=== PATIENT | male | born 1940 | race Hispanic/Latino ===

== ENCOUNTER → 2018-08-16 | Outpatient (CLI) | payer OTHER ==
[~2018-08-16] MED LIST: ASPI-1197 PO; ATOR40TA71 PO; CARV25TA PO; FA/M1TAB32 PO; FLUT1DIS3 IH; FURO40TA5 PO; IPRA42SP EN; LISI2.5T2 PO; METF-444 PO; OMEG-108 PO; OXYB15TA PO; SPIR25TA6 PO; TAMS0.4C32 PO; TYL3 PO; UMEC62.5 IH
== END | disposition home or self-care (01) ==
LOC: SHCH 09:47
PROVIDERS: ATTEND Internal Medicine Cardiovascular Disease
DX: I08.0 Rheumatic disorders of both mitral and aortic valves (principal); Z95.810 Presence of automatic (implantable) cardiac defibrillator
CPT/HCPCS: 93306

== ENCOUNTER → 2020-05-10 | Outpatient (CLI) | payer MEDICARE ==
[~2020-05-10] VITALS: Ht 165.1 cm; Wt 68.5 kg
[~2020-05-10] MED LIST changes: -OXYB15TA PO; +OXYB15TA19 PO; +REGADENOSON 0.4 MG/5 ML PF SYG IVP SCH
== END | disposition home or self-care (01) ==
LOC: SHCH 08:33
PROVIDERS: ATTEND Internal Medicine Cardiovascular Disease
DX: I25.10 Atherosclerotic heart disease of native coronary artery without angina pectoris (principal)
CPT/HCPCS: 78452; 93017; 96374; A9500 ×2; J2785

== ENCOUNTER 2020-06-04 06:31 | Day surgery (SDC) | payer MEDICARE ==
[~2020-06-04 06:31] MED LIST changes: -REGADENOSON 0.4 MG/5 ML PF SYG IVP SCH; +SODIUM CHLORIDE 0.9% 1000ML 1,000 ML IV ONE
== END 2020-06-04 07:50 ==
LOC: ENDO 06:31 → DAH 06:31 → ENDO 07:50
PROVIDERS: ATTEND Internal Medicine Gastroenterology
DX: R19.5 Other fecal abnormalities (principal); Z86.010 Personal history of colon polyps; Z20.828 Contact with and (suspected) exposure to other viral communicable diseases; Z53.8 Procedure and treatment not carried out for other reasons
CPT/HCPCS: 82948; C9803; J7030; U0003

== ENCOUNTER 2020-12-10 09:38 | Inpatient (IN) | payer MEDICARE ==
[2020-12-10] VITALS (39 sets, daily range): BP systolic 89–111; BP diastolic 40–61
[~2020-12-10] VITALS: Ht 162.6 cm; Wt 64.9 kg
[~2020-12-10 09:38] MED LIST changes: +ACET-2247 PO; +APIX2.5T PO; -ASPI-1197 PO; +ATOR20TA PO; -ATOR40TA71 PO; -CARV25TA PO; +CARV6.25 PO; +CYCL5TAB PO; +DICY20TA11 PO; +DOCU100T PO; -FA/M1TAB32 PO; -FLUT1DIS3 IH; +FURO-151 PO; -FURO40TA5 PO; +GLUC1SYR SQ; +GUAI100S13 PO; +INSU100V3 IJ; -IPRA42SP EN; +LACT10SO9 PO; +LACT1CAP70 PO; -LISI2.5T2 PO; +MEGE400O4 PO; -METF-444 PO; +METO5TAB87 PO; +MULT-1192 PO; -OMEG-108 PO; +ONDA4TAB4 PO; -OXYB15TA19 PO; +QUESL4 PO; -SODIUM CHLORIDE 0.9% 1000ML 1,000 ML IV ONE; -SPIR25TA6 PO; +TAMS-1 PO; -TAMS0.4C32 PO; +THIA100V3 PO; +TROL35.4 TP; -TYL3 PO; -UMEC62.5 IH
[2020-12-10 10:04] LABS: BASOPHILS % (AUTO) 0.2 % (0.0-5.0); EOSINOPHILS % (AUTO) 0.2 % (0.0-8.0); HEMATOCRIT 34.5 % (42-54); LYMPHOCYTES % (AUTO) 7.4 % (21.0-51.0); MEAN CORPUSCULAR HEMOGLOBIN 27.1 pg (27.0-33.0); MEAN CORPUSCULAR HGB CONC 32.5 g/dL (32.0-36.0); MEAN CORPUSCULAR VOLUME 83.5 fL (79-99); MONOCYTES % (AUTO) 6.9 % (3.0-13.0); NEUTROPHILS % (AUTO) 84.7 % (40.0-77.0); PLATELET COUNT (AUTO) 183 K/uL (130-400); RED BLOOD CELL COUNT(AUTO) 4.13 MIL/uL (4.50-6.20); RED CELL DISTRIBUTION WIDTH 15.2 % (11.0-15.5); WHITE BLOOD COUNT (AUTO) 12.5 K/uL (4.8-10.8)
[2020-12-10 10:18] LABS: CREATININE 1.3 mg/dL (0.5-1.5); POTASSIUM 3.5 mmol/L (3.5-5.1)
[2020-12-10 10:23] LABS: ALBUMIN 3.8 g/dL (3.5-5.0); BILIRUBIN,TOTAL 0.5 mg/dL (0.2-1.0); MAGNESIUM 1.9 mg/dL (1.80-2.40); TOTAL PROTEIN, SERUM 7.6 g/dL (6.0-8.3)
[2020-12-10] MEDS ORDERED: PHARMACY COMMUNICATION MISC SCH (10:30)
[2020-12-10] MEDS ORDERED: AMIODARONE 900MG VIAL 360 MG in DEXTROSE 5%-WATER 200 ML IV SCH (10:30)
[2020-12-10] MEDS ORDERED: AMIODARONE 150MG VIAL ONE ×2 (10:32→10:59)
[2020-12-10] MEDS ORDERED: 0.9%NACL 50ML 50 ML IV ONE ×2 (10:33→10:59)
[2020-12-10] MEDS ORDERED: POTASSIUM CHLORIDE 20MEQ/100ML 100 ML IV ONE (10:53)
[2020-12-10] MEDS ORDERED: AMIODARONE 150MG VIAL 150 MG in DEXTROSE 5%-WATER 100 ML IV SCH (11:30)
[2020-12-10 11:51] LABS: B-TYPE NATRIURETIC PEPTIDE 220 pg/mL (0-100)
[2020-12-10] MEDS ORDERED: ACETAMINOPHEN 325 MG TAB PO PRN ×2 (12:30→13:00)
[2020-12-10] MEDS ORDERED: ONDANSETRON 4MG INJ IVP PRN ×2 (12:30→13:00)
[2020-12-10] MEDS ORDERED: KCL 20 MEQ ERTAB PO PRN (13:00)
[2020-12-10] MEDS ORDERED: GLUCAGON 1MG KIT 1 MG ML IM PRN (13:00)
[2020-12-10] MEDS ORDERED: [UNRECOGNIZED DRUG - OTHER] IV PRN (13:00)
[2020-12-10] MEDS ORDERED: LIDOCAINE HCL-MPF 1% 2ML VIAL IJ PRN (13:00)
[2020-12-10] MEDS ORDERED: SODIUM CHLORIDE 0.9% IV PRN (13:00)
[2020-12-10] MEDS ORDERED: DEXTROSE 50%-WATER 50 ML DISP.SYRIN IV PRN (13:00)
[2020-12-10] MEDS ORDERED: MAGNESIUM 2GM PREMIX IV PRN (13:00)
[2020-12-10] MEDS ORDERED: POTASSIUM CHLORIDE 20MEQ/100ML 100 ML IV PRN (13:00)
[2020-12-10] MEDS ORDERED: EPINEPHRINE 1MG SYG 10ML IVP ONE (14:39)
[2020-12-10] MEDS ORDERED: AMIODARONE 150MG VIAL IV ONE (14:39)
[2020-12-10] MEDS ORDERED: SODIUM BICARB 8.4% 50ML SYRINGE IVP ONE (14:39)
[2020-12-10] MEDS ORDERED: CACL 1GM SYG IVP ONE (14:39)
[2020-12-10] MEDS ORDERED: LIDOCAINE PF 100MG/5ML (2%) SYRINGE 5ML IVP ONE (14:39)
[2020-12-10] MEDS ORDERED: LIDOCAINE 2G/250ML 250 ML IV ONE (14:39)
[2020-12-10] MEDS ORDERED: DAPA5TAB PO (14:40)
[2020-12-10] MEDS ORDERED: CARV6.25 PO (14:40)
[2020-12-10] MEDS ORDERED: IPRA3S NASAL (14:40)
[2020-12-10] MEDS ORDERED: TAMS-1 PO (14:40)
[2020-12-10] MEDS ORDERED: METF-445 PO (14:40)
[2020-12-10] MEDS ORDERED: MONT10TA32 PO (14:40)
[2020-12-10] MEDS ORDERED: ATOR-2 PO (14:40)
[2020-12-10] MEDS ORDERED: APIX5TAB PO (14:40)
[2020-12-10] MEDS ORDERED: FURO40TA5 PO (14:40)
[2020-12-10] MEDS ORDERED: POTA20TA82 PO (14:40)
[2020-12-10] MEDS: INSULIN R PO SS1 SQ SCH ×2 (16:28→21:13)
[2020-12-10] MEDS: AMIODARONE 900MG VIAL 450 MG in DEXTROSE 5%-WATER 250 ML IV SCH (17:05)
[2020-12-10] MEDS: CEFEPIME HCL 1 GM VIAL IVP SCH (17:52)
[2020-12-10] MEDS: DOXYCYCLINE HYCLATE 100 MG TABLET PO SCH (17:52)
[2020-12-10] MEDS: ATORVASTATIN 40 MG TABLET PO SCH (21:11)
[2020-12-10] MEDS: APIXABAN 5 MG TABLET PO SCH (21:12)
[2020-12-11] VITALS (40 sets, daily range): BP systolic 92–114; BP diastolic 47–67
[2020-12-11 03:54] LABS: BASOPHILS % (AUTO) 0.3 % (0.0-5.0); EOSINOPHILS % (AUTO) 0.1 % (0.0-8.0); HEMATOCRIT 31.3 % (42-54); LYMPHOCYTES % (AUTO) 10.4 % (21.0-51.0); MEAN CORPUSCULAR HGB CONC 32.3 g/dL (32.0-36.0); MEAN CORPUSCULAR VOLUME 83.7 fL (79-99); MONOCYTES % (AUTO) 7.5 % (3.0-13.0); NEUTROPHILS % (AUTO) 81.2 % (40.0-77.0); PLATELET COUNT (AUTO) 159 K/uL (130-400); RED BLOOD CELL COUNT(AUTO) 3.74 MIL/uL (4.50-6.20); RED CELL DISTRIBUTION WIDTH 15.5 % (11.0-15.5); WHITE BLOOD COUNT (AUTO) 14.6 K/uL (4.8-10.8)
[2020-12-11 04:17] LABS: ALBUMIN 3.2 g/dL (3.5-5.0); BILIRUBIN,TOTAL 0.7 mg/dL (0.2-1.0); CREATININE 1.1 mg/dL (0.5-1.5); MAGNESIUM 2.5 mg/dL (1.80-2.40); POTASSIUM 4.2 mmol/L (3.5-5.1); TOTAL PROTEIN, SERUM 6.8 g/dL (6.0-8.3)
[2020-12-11 04:20] LABS: HEMOGLOBIN A1C 5.7 % (4.0-6.0)
[2020-12-11] MEDS: DOXYCYCLINE HYCLATE 100 MG TABLET PO SCH ×2 (04:56→18:11)
[2020-12-11] MEDS: CEFEPIME HCL 1 GM VIAL IVP SCH ×2 (04:56→18:11)
[2020-12-11] MEDS: INSULIN R PO SS1 SQ SCH ×4 (07:30→21:00)
[2020-12-11] MEDS ORDERED: LACTULOSE 20 GM/30 ML UDCUP PO SCH (09:00)
[2020-12-11] MEDS: AMIODARONE 900MG VIAL 450 MG in DEXTROSE 5%-WATER 250 ML IV SCH (09:45)
[2020-12-11] MEDS: CARVEDILOL 6.25 MG TABLET PO SCH ×2 (10:15→21:18)
[2020-12-11] MEDS: APIXABAN 5 MG TABLET PO SCH ×2 (10:16→21:18)
[2020-12-11] MEDS: FUROSEMIDE 40 MG TABLET PO SCH (10:16)
[2020-12-11] MEDS: MONTELUKAST SODIUM 10 MG TAB PO SCH (10:16)
[2020-12-11] MEDS: TAMSULOSIN HCL 0.4 MG CAP.ER.24H PO SCH (10:17)
[2020-12-11] MEDS: METFORMIN HCL 850 MG TABLET PO SCH ×2 (10:47→18:09)
[2020-12-11] MEDS: IPRATROPIUM 0.5 MG/2.5 ML INH IH SCH ×2 (12:00→18:00)
[2020-12-11] MEDS: AMIODARONE 200 MG TABLET PO SCH (21:18)
[2020-12-11] MEDS: ATORVASTATIN 40 MG TABLET PO SCH (21:18)
[2020-12-12 04:00] VITALS: BP 98/56
[2020-12-12] MEDS: DOXYCYCLINE HYCLATE 100 MG TABLET PO SCH ×2 (05:35→17:04)
[2020-12-12] MEDS: CEFEPIME HCL 1 GM VIAL IVP SCH ×2 (05:35→17:04)
[2020-12-12] MEDS: INSULIN R PO SS1 SQ SCH ×4 (07:30→20:42)
[2020-12-12 08:00] VITALS: BP 96/54
[2020-12-12 09:11] LABS: HEMATOCRIT 31.2 % (42-54); MEAN CORPUSCULAR HEMOGLOBIN 27.1 pg (27.0-33.0); MEAN CORPUSCULAR HGB CONC 32.4 g/dL (32.0-36.0); MEAN CORPUSCULAR VOLUME 83.6 fL (79-99); RED BLOOD CELL COUNT(AUTO) 3.73 MIL/uL (4.50-6.20); RED CELL DISTRIBUTION WIDTH 15.3 % (11.0-15.5); WHITE BLOOD COUNT (AUTO) 11.2 K/uL (4.8-10.8)
[2020-12-12] MEDS: TAMSULOSIN HCL 0.4 MG CAP.ER.24H PO SCH (09:15)
[2020-12-12] MEDS: MONTELUKAST SODIUM 10 MG TAB PO SCH (09:15)
[2020-12-12] MEDS: AMIODARONE 200 MG TABLET PO SCH ×2 (09:15→21:58)
[2020-12-12] MEDS: APIXABAN 5 MG TABLET PO SCH ×2 (09:15→21:57)
[2020-12-12] MEDS: FUROSEMIDE 40 MG TABLET PO SCH (09:15)
[2020-12-12] MEDS: METFORMIN HCL 850 MG TABLET PO SCH ×2 (09:16→17:04)
[2020-12-12] MEDS: CARVEDILOL 6.25 MG TABLET PO SCH ×2 (09:17→21:57)
[2020-12-12 09:26] LABS: CREATININE 1.3 mg/dL (0.5-1.5); POTASSIUM 3.8 mmol/L (3.5-5.1)
[2020-12-12] MEDS ORDERED: PHARMACY COMMUNICATION MISC SCH (09:30)
[2020-12-12 11:50] VITALS: BP 91/53
[2020-12-12] MEDS: IPRATROPIUM 0.5 MG/2.5 ML INH IH SCH ×4 (12:30→23:07)
[2020-12-12 16:06] VITALS: BP 96/53
[2020-12-12 19:00] VITALS: BP 97/55
[2020-12-12] MEDS: ATORVASTATIN 40 MG TABLET PO SCH (21:57)
[2020-12-12] MEDS: SACUBITRIL/VALSARTAN 1 EACH TABLET PO SCH (21:57)
[2020-12-12] MEDS: BALSAM PERU/CASTOR OIL 60 GM TUBE TP SCH (21:58)
[2020-12-13] VITALS (34 sets, daily range): BP systolic 68–120; BP diastolic 42–65
[2020-12-13 04:25] LABS: CREATININE 1.4 mg/dL (0.5-1.5)
[2020-12-13] MEDS: DOXYCYCLINE HYCLATE 100 MG TABLET PO SCH ×2 (05:19→20:11)
[2020-12-13] MEDS: CEFEPIME HCL 1 GM VIAL IVP SCH ×2 (05:19→20:10)
[2020-12-13] MEDS: IPRATROPIUM 0.5 MG/2.5 ML INH IH SCH ×3 (07:21→23:18)
[2020-12-13] MEDS: INSULIN R PO SS1 SQ SCH ×3 (07:30→16:30)
[2020-12-13] MEDS ORDERED: SPIRONOLACTONE 25 MG TAB PO SCH (09:00)
[2020-12-13] MEDS: BALSAM PERU/CASTOR OIL 60 GM TUBE TP SCH ×2 (09:00→21:00)
[2020-12-13] MEDS: MONTELUKAST SODIUM 10 MG TAB PO SCH (09:49)
[2020-12-13] MEDS: APIXABAN 5 MG TABLET PO SCH ×2 (09:49→19:37)
[2020-12-13] MEDS: LORATADINE/PSEUDOEPHED 5/120 MG 1 EACH TAB.SR.12H PO SCH (09:49)
[2020-12-13] MEDS: AMIODARONE 200 MG TABLET PO SCH (09:50)
[2020-12-13] MEDS: TAMSULOSIN HCL 0.4 MG CAP.ER.24H PO SCH (09:51)
[2020-12-13] MEDS: FUROSEMIDE 40 MG TABLET PO SCH (10:00)
[2020-12-13] MEDS: CARVEDILOL 6.25 MG TABLET PO SCH ×2 (10:18→10:22)
[2020-12-13] MEDS: METFORMIN HCL 850 MG TABLET PO SCH (10:21)
[2020-12-13] MEDS ORDERED: AMIODARONE 900MG VIAL 360 MG in DEXTROSE 5%-WATER 200 ML IV SCH (10:30)
[2020-12-13] MEDS ORDERED: MIDAZOLAM HCL 1 MG/ML 2ML VIAL ONE (12:34)
[2020-12-13] MEDS ORDERED: FENTANYL CITRATE PF 50 MCG/1 ML 2ML VIAL ONE (12:35)
[2020-12-13] MEDS ORDERED: LIDOCAINE HCL/PF 2% IV FOR VENTRICULAR ARRHYTHMIA IV PRN (14:00)
[2020-12-13] MEDS: LIDOCAINE 2G/250ML 250 ML IV SCH ×2 (14:06→23:47)
[2020-12-13] MEDS ORDERED: PROPOFOL 1000 MG/100 ML 100 ML IV ONE ×2 (14:28→20:07)
[2020-12-13 15:47] LABS: INR 1.08 (0.85-1.15); PROTHROMBIN TIME 11.7 SEC (9.6-11.6)
[2020-12-13] MEDS ORDERED: MAGNESIUM 2GM PREMIX 50ML 50 ML IV SCH (16:00)
[2020-12-13 16:29] LABS: ABG BASE EXCESS -6.3 mmol/L (-2.0-3.0); ABG HCO3 20.7 mmol/L (21.0-28.0); ABG OXYGEN SATURATION 94.2 % (95.0-99.0); ABG PCO2 47 mmHg (35-48)
[2020-12-13] MEDS: LACTATED RINGERS 1000ML 1,000 ML IV SCH (16:37)
[2020-12-13 16:57] LABS: CREATININE 1.4 mg/dL (0.5-1.5); POTASSIUM 3.6 mmol/L (3.5-5.1)
[2020-12-13] MEDS ORDERED: PHENYLEPHRINE HCL 10 MG in 0.9% NACL 250ML 250 ML IV PRN (17:30)
[2020-12-13 18:55] LABS: ABG BASE EXCESS -3.2 mmol/L (-2.0-3.0); ABG HCO3 21.5 mmol/L (21.0-28.0); ABG OXYGEN SATURATION 99.6 % (95.0-99.0); ABG PCO2 38 mmHg (35-48)
[2020-12-13] MEDS: SACUBITRIL/VALSARTAN 1 EACH TABLET PO SCH (19:37)
[2020-12-13] MEDS: POTASSIUM CHLORIDE 10% ELIXIR 20 MEQ/15 ML UDCUP PO PRN (19:37)
[2020-12-13] MEDS: ATORVASTATIN 40 MG TABLET PO SCH (19:37)
[2020-12-13] MEDS: PHENYLEPHRINE HCL 10 MG in 0.9% NACL 250ML 250 ML IV PRN ×2 (20:27→21:53)
[2020-12-13] MEDS: INSULIN HUMULIN R 100 UNIT/ML 3ML SQ SCH (23:50)
[2020-12-14] VITALS (32 sets, daily range): BP systolic 51–106; BP diastolic 18–67
[2020-12-14] MEDS: PROPOFOL 1000 MG/100 ML 100 ML IV SCH ×2 (01:52→07:24)
[2020-12-14] MEDS: POTASSIUM CHLORIDE 10% ELIXIR 20 MEQ/15 ML UDCUP PO PRN (01:54)
[2020-12-14] MEDS ORDERED: PHENYLEPHRINE HCL 50 MG/NS 250ML IV PRN ×2 (02:00)
[2020-12-14 05:31] LABS: HEMATOCRIT 29.5 % (42-54); MEAN CORPUSCULAR HEMOGLOBIN 27.1 pg (27.0-33.0); MEAN CORPUSCULAR HGB CONC 32.2 g/dL (32.0-36.0); MEAN CORPUSCULAR VOLUME 84.3 fL (79-99); RED BLOOD CELL COUNT(AUTO) 3.5 MIL/uL (4.50-6.20); RED CELL DISTRIBUTION WIDTH 15.4 % (11.0-15.5); WHITE BLOOD COUNT (AUTO) 8.4 K/uL (4.8-10.8)
[2020-12-14 05:44] LABS: CREATININE 1.2 mg/dL (0.5-1.5); MAGNESIUM 2.2 mg/dL (1.80-2.40); POTASSIUM 3.6 mmol/L (3.5-5.1)
[2020-12-14 05:47] LABS: INR 1.08 (0.85-1.15); PROTHROMBIN TIME 11.7 SEC (9.6-11.6)
[2020-12-14] MEDS: INSULIN HUMULIN R 100 UNIT/ML 3ML SQ SCH ×4 (06:00→23:59)
[2020-12-14] MEDS: IPRATROPIUM 0.5 MG/2.5 ML INH IH SCH ×3 (07:08→18:43)
[2020-12-14] MEDS: FAMOTIDINE 20MG VIAL IV SCH (07:57)
[2020-12-14] MEDS: CEFEPIME HCL 1 GM VIAL IVP SCH ×2 (07:57→20:14)
[2020-12-14] MEDS: CARVEDILOL 6.25 MG TABLET PO SCH ×2 (09:00→19:25)
[2020-12-14] MEDS: TAMSULOSIN HCL 0.4 MG CAP.ER.24H PO SCH (09:00)
[2020-12-14] MEDS: LIDOCAINE 2G/250ML 250 ML IV SCH ×2 (09:51→21:58)
[2020-12-14] MEDS: MONTELUKAST SODIUM 10 MG TAB PO SCH (09:54)
[2020-12-14] MEDS: LORATADINE/PSEUDOEPHED 5/120 MG 1 EACH TAB.SR.12H PO SCH (09:54)
[2020-12-14] MEDS: DOXYCYCLINE HYCLATE 100 MG TABLET PO SCH ×2 (09:54→20:15)
[2020-12-14] MEDS ORDERED: LIDOCAINE HCL 400MG/20ML VIAL ONE (10:26)
[2020-12-14] MEDS ORDERED: NICARDIPINE 25MG INJ IV ONE (10:26)
[2020-12-14] MEDS ORDERED: NITROGLYCERIN 2 MG VIAL IV ONE (10:26)
[2020-12-14] MEDS ORDERED: IOHEXOL-350 50ML VIAL IV ONE (10:26)
[2020-12-14] MEDS ORDERED: HEPARIN 10,000 UNIT/10ML (1,000 UNIT/ML) VIAL ONE (10:26)
[2020-12-14] MEDS ORDERED: IOHEXOL 350 MG/ML 100ML INFUS..BTL IV ONE (10:26)
[2020-12-14] MEDS ORDERED: NOREPINEPHRINE 8MG/NS 250 ML 250 ML IV ONE (13:03)
[2020-12-14 13:19] LABS: ABG BASE EXCESS -5.9 mmol/L (-2.0-3.0); ABG HCO3 18.6 mmol/L (21.0-28.0); ABG OXYGEN SATURATION 97.1 % (95.0-99.0); ABG PCO2 34 mmHg (35-48)
[2020-12-14] MEDS ORDERED: VASOPRESSIN 20 UNITS in 0.9%NACL 100ML 100 ML IV SCH (13:30)
[2020-12-14] MEDS ORDERED: HYDROCORTISONE SOD SUCCINATE 100 MG/2 ML VIAL ONE (13:39)
[2020-12-14 13:42] LABS: HEMATOCRIT 29.3 % (42-54); MEAN CORPUSCULAR HEMOGLOBIN 27.1 pg (27.0-33.0); MEAN CORPUSCULAR HGB CONC 31.4 g/dL (32.0-36.0); MEAN CORPUSCULAR VOLUME 86.4 fL (79-99); PLATELET COUNT (AUTO) 224 K/uL (130-400); RED BLOOD CELL COUNT(AUTO) 3.39 MIL/uL (4.50-6.20); RED CELL DISTRIBUTION WIDTH 15.6 % (11.0-15.5); WHITE BLOOD COUNT (AUTO) 12.3 K/uL (4.8-10.8)
[2020-12-14 13:53] LABS: POTASSIUM 4.2 mmol/L (3.5-5.1)
[2020-12-14] MEDS: LACTATED RINGERS 1000ML 1,000 ML IV SCH (13:56)
[2020-12-14] MEDS ORDERED: SODIUM BICARB 50MEQ 50ML VIAL IV STA (14:02)
[2020-12-14] MEDS ORDERED: SODIUM BICARB 50MEQ 50ML VIAL 100 ML ONE (14:05)
[2020-12-14 14:49] LABS: BAND NEUTROPHILS % (MANUAL) 1 % (0-2); EOSINOPHILS % (MANUAL) 1 % (1-6); LYMPHOCYTES % (MANUAL) 39 % (22-44); MAN.DIFF COMMENT-IMPRESSION MANUAL DIFFERENTIAL; MONOCYTES % (MANUAL) 10 % (2-9); SEGMENTED NEUTROPHILS % 49 % (40-70)
[2020-12-14 14:50] LABS: PLATELET MORPHOLOGY COMMENT ADEQUATE
[2020-12-14] MEDS ORDERED: PHARMACY COMMUNICATION MISC SCH (16:00)
[2020-12-14] MEDS ORDERED: FENTANYL 2500MCG+NS 250ML 250 ML IV SCH (16:30)
[2020-12-14] MEDS ORDERED: FENTANYL CITRATE PF 0.05 MG/ML 2,500 MCG in 0.9%NACL 100ML 250 ML IVPB SCH (16:30)
[2020-12-14] MEDS: BALSAM PERU/CASTOR OIL 60 GM TUBE TP SCH ×2 (17:00→20:15)
[2020-12-14] MEDS: HYDROCORTISONE SOD SUCCINATE 100 MG/2 ML VIAL IV SCH ×2 (18:34→23:58)
[2020-12-14] MEDS: PHENYLEPHRINE HCL 100 MG in 0.9% NACL 250ML 250 ML IV PRN (18:46)
[2020-12-14] MEDS ORDERED: MIDAZOLAM 100MG-0.9% NS 100ML 100ML BAG IV SCH (19:00)
[2020-12-14] MEDS: SACUBITRIL/VALSARTAN 1 EACH TABLET PO SCH (19:26)
[2020-12-14] MEDS: ATORVASTATIN 40 MG TABLET PO SCH (20:14)
[2020-12-14] MEDS ORDERED: APIXABAN 5 MG TABLET PO SCH (21:00)
[2020-12-14] MEDS: AMIODARONE 200 MG TABLET PO SCH (23:58)
[2020-12-15] VITALS (27 sets, daily range): BP systolic 69–152; BP diastolic 40–77
[2020-12-15] MEDS: PHENYLEPHRINE HCL 100 MG in 0.9% NACL 250ML 250 ML IV PRN (03:34)
[2020-12-15] MEDS ORDERED: EPINEPHRINE PF 1MG AMP ONE (04:46)
[2020-12-15] MEDS ORDERED: NOREPINEPHRINE 8MG/NS 250 ML 250 ML IV ONE (04:52)
[2020-12-15 04:54] LABS: HEMATOCRIT 35.1 % (42-54); MEAN CORPUSCULAR HEMOGLOBIN 26.8 pg (27.0-33.0); MEAN CORPUSCULAR HGB CONC 30.5 g/dL (32.0-36.0); MEAN CORPUSCULAR VOLUME 87.8 fL (79-99); NUCLEATED RED BLOOD CELLS 0.4 % (0.0-0.19); RED CELL DISTRIBUTION WIDTH 15.7 % (11.0-15.5); WHITE BLOOD COUNT (AUTO) 11.8 K/uL (4.8-10.8)
[2020-12-15] MEDS ORDERED: EPINEPHRINE IV SCH (05:00)
[2020-12-15] MEDS ORDERED: NACL 0.9% IV SCH (05:00)
[2020-12-15 05:22] LABS: ALBUMIN 2.3 g/dL (3.5-5.0); BILIRUBIN,TOTAL 0.7 mg/dL (0.2-1.0); MAGNESIUM 2.6 mg/dL (1.80-2.40); POTASSIUM 5.3 mmol/L (3.5-5.1); TOTAL PROTEIN, SERUM 5.9 g/dL (6.0-8.3)
[2020-12-15 05:26] LABS: ABG BASE EXCESS -15.2 mmol/L (-2.0-3.0); ABG HCO3 13.8 mmol/L (21.0-28.0); ABG OXYGEN SATURATION 99.1 % (95.0-99.0); ABG PCO2 44 mmHg (35-48)
[2020-12-15] MEDS ORDERED: NOREPINEPHRINE 4MG/NS 250ML 250 ML IV SCH (05:30)
[2020-12-15] MEDS: INSULIN HUMULIN R 100 UNIT/ML 3ML SQ SCH (06:00)
[2020-12-15] MEDS: HYDROCORTISONE SOD SUCCINATE 100 MG/2 ML VIAL IV SCH (06:36)
[2020-12-15] MEDS: LACTATED RINGERS 1000ML 1,000 ML IV SCH (07:00)
[2020-12-15] MEDS: IPRATROPIUM 0.5 MG/2.5 ML INH IH SCH (07:12)
[2020-12-15] MEDS ORDERED: SODIUM BICARB 50MEQ 50ML VIAL IV SCH (07:18)
[2020-12-15] MEDS ORDERED: SODIUM BICARB 8.4% 50ML SYRING 150 MEQ in DEXTROSE 5%-WATER 1,000 ML IVP STA (07:20)
[2020-12-15] MEDS: LORATADINE/PSEUDOEPHED 5/120 MG 1 EACH TAB.SR.12H PO SCH (08:24)
[2020-12-15] MEDS: TAMSULOSIN HCL 0.4 MG CAP.ER.24H PO SCH (08:24)
[2020-12-15] MEDS ORDERED: PHARMACY COMMUNICATION MISC SCH (08:30)
[2020-12-15] MEDS ORDERED: [UNRECOGNIZED DRUG - OTHER] IV PRN (08:30)
[2020-12-15] MEDS ORDERED: LORAZEPAM 2 MG/ML 1 ML VIAL IVP PRN ×2 (08:30→11:30)
[2020-12-15] MEDS ORDERED: NOREPINEPHRINE IV PRN (08:30)
[2020-12-15] MEDS: FAMOTIDINE 20MG VIAL IV SCH (08:49)
[2020-12-15] MEDS: AMIODARONE 200 MG TABLET PO SCH (08:50)
[2020-12-15] MEDS: DOXYCYCLINE HYCLATE 100 MG TABLET PO SCH (08:50)
[2020-12-15] MEDS: BALSAM PERU/CASTOR OIL 60 GM TUBE TP SCH (08:50)
[2020-12-15] MEDS: CEFEPIME HCL 1 GM VIAL IVP SCH (08:50)
[2020-12-15 10:05] LABS: ABG BASE EXCESS -7.1 mmol/L (-2.0-3.0); ABG HCO3 18.1 mmol/L (21.0-28.0); ABG OXYGEN SATURATION 98.9 % (95.0-99.0); ABG PCO2 36 mmHg (35-48)
[2020-12-15] MEDS ORDERED: HYDROMORPHONE 1 MG INJ IVP SCH (11:30)
== END 2020-12-15 14:40 | DRG 208 ==
LOC: EDH 09:38 → EDHIP 11:47 → 2CH 16:02 → 2DH 12-11 14:20 → 4AH 12-12 02:01 → 2DH 12-13 11:10
PROVIDERS: ADMIT Internal Medicine Infectious Disease; ATTEND Internal Medicine Infectious Disease
PROC: 5A12012 Performance of Cardiac Output, Single, Manual (ICD-10-PCS; principal; 2020-12-13)
PROC: 5A1945Z Respiratory Ventilation, 24-96 Consecutive Hours (ICD-10-PCS; 2020-12-13)
PROC: 0BH17EZ Insertion of Endotracheal Airway into Trachea, Via Natural or Artificial Opening (ICD-10-PCS; 2020-12-13)
PROC: 02HV33Z Insertion of Infusion Device into Superior Vena Cava, Percutaneous Approach (ICD-10-PCS; 2020-12-13)
PROC: 4A023N7 Measurement of Cardiac Sampling and Pressure, Left Heart, Percutaneous Approach (ICD-10-PCS; 2020-12-14)
PROC: B2111ZZ Fluoroscopy of Multiple Coronary Arteries using Low Osmolar Contrast (ICD-10-PCS; 2020-12-14)
PROC: B2151ZZ Fluoroscopy of Left Heart using Low Osmolar Contrast (ICD-10-PCS; 2020-12-14)
PROC: 5A12012 Performance of Cardiac Output, Single, Manual (ICD-10-PCS; 2020-12-15)
DX: J15.6 Pneumonia due to other Gram-negative bacteria (principal); J96.90 Respiratory failure, unspecified, unspecified whether with hypoxia or hypercapnia; I47.2 Ventricular tachycardia; J44.0 Chronic obstructive pulmonary disease with (acute) lower respiratory infection; I50.22 Chronic systolic (congestive) heart failure; N39.0 Urinary tract infection, site not specified; I48.19 Other persistent atrial fibrillation; I44.2 Atrioventricular block, complete; E11.9 Type 2 diabetes mellitus without complications; E78.5 Hyperlipidemia, unspecified; I11.0 Hypertensive heart disease with heart failure; I25.10 Atherosclerotic heart disease of native coronary artery without angina pectoris; I25.5 Ischemic cardiomyopathy; I46.9 Cardiac arrest, cause unspecified; B96.1 Klebsiella pneumoniae [K. pneumoniae] as the cause of diseases classified elsewhere; K59.00 Constipation, unspecified; L89.151 Pressure ulcer of sacral region, stage 1; Z88.0 Allergy status to penicillin; Z79.01 Long term (current) use of anticoagulants; I25.2 Old myocardial infarction; Z95.810 Presence of automatic (implantable) cardiac defibrillator; Z45.02 Encounter for adjustment and management of automatic implantable cardiac defibrillator; Z83.3 Family history of diabetes mellitus
CPT/HCPCS: 31500; 36415; 36600; 71045; 71046; 80048; 80053; 80061; 80176; 82435; 82550; 82803; 82947; 82948; 83036; 83605; 83735; 83874; 83880; 84100; 84132; 84295; 84484; 85018; 85025; 85027; 85610; 85730; 87040; 87071; 87077; 87186; 87205; 92950; 93005; 93459; 94002; 94003; 94640; 97039; 99291; A4344; C1751; C1760; C1894; G0378; J0171; J0282; J0692; J1644; J1720; J1815; J2001; J2060; J2250; J2370; J2405; J2704; J3010; J3475; J3480; J3490; J7050; J7060; J7070; J7120; Q9967